=== PATIENT | female | born 1985 | race Caucasian/White ===

== ENCOUNTER → 2018-11-26 | Outpatient (CLI) | payer BC ==
[~2018-11-26] MED LIST: CONRAY-43 43% 50ML VIAL (Q9960) As Ordered ONE; PROHANCE 279.3MG/ML 5ML VIAL (A9576) As Ordered ONE
--- NOTE | 2018-11-26 11:03 | REP ---
MR ARTHROGRAM LEFT WRIST: TECHNIQUE: Multiple sequences obtained in the axial, coronal and sagittal planes prior to and following arthrogram procedure. There is focal marrow edema in the distal radius consistent with a nondisplaced fracture. There is mild fluid in the distal radial ulnar joint. On the arthrogram images injected fluid in the radiocarpal joint communicates with the distal radial ulnar joint consistent with a partial full thickness tear of the triangular fibrocartilage complex. The tear appears to be near the ulnar styloid insertion. The scapholunate and lunatotriquetral ligaments are intact. Flexor and extensor tendons are intact without significant tenosynovitis. Carpal tunnel region is unremarkable. There is no evidence of a ganglion cyst. No other soft tissue abnormality is seen. No other bone marrow signal abnormality is seen. IMPRESSION: Nondisplaced fracture distal radius. Full thickness partial tear of the triangular fibrocartilage complex near the ulnar styloid insertion. Mild fluid in the distal radial ulnar joint. Electronically Signed by Terrence Roman MD 11/26/2018 12:45 P
--- NOTE | 2018-11-26 17:22 | REP ---
LEFT WRIST ARTHROGRAM The procedure was performed under the direct supervision of Dr. Roman. The images were reviewed with Dr. Roman. The benefits and risks including but not limited to pain infection bleeding and anaphylaxis were explained to the patient and informed consent was obtained. The left radial scaphoid joint space was localized using fluoroscopic guidance. The skin was prepped and draped in a sterile fashion. 1% lidocaine was used as a local anesthetic. Using fluoroscopic guidance a 25-gauge needle was inserted and advanced into the joint. 3 ml of a solution containing 5 ml of Conray 43 and 5 ml of a solution containing 20 ml of sterile saline and 0.15 ml of ProHance was injected into the joint. Images obtained during injection show filling of the radial carpal row. The scapholunate and lunatotriquetral ligaments appear intact. There is contrast seen extending into the distal radial ulnar joint representing a triangular fibrocartilage complex tear. The needle was removed and the patient was taken to MRI for postprocedural imaging. The patient tolerated the procedure well and there were no immediate complications. 0.2 minutes of fluoroscopy time was utilized for this procedure. Reviewed by YONG Chaudhary 11/26/2018 04:24 P Electronically Signed by Terrence Roman MD 11/26/2018 05:13 P
== END ==
LOC: M RADPRO 06:30
PROVIDERS: ATTEND Nurse Practitioner Adult Health
DX: S52.592A Other fractures of lower end of left radius, initial encounter for closed fracture (principal)
CPT/HCPCS: 25246; 73223; 77002; A9576; Q9960

== ENCOUNTER → 2023-06-26 | Outpatient (CLI) | payer OTHER | LOC: M LAB 16:57 | PROVIDERS: ATTEND Physician Assistant | DX: R10.9 Unspecified abdominal pain (principal) ==

== ENCOUNTER → 2023-07-14 | Outpatient (CLI) | payer OTHER ==
[2023-07-14 18:40] LABS: BASO # 0.1 10^3/uL (0.0-0.2); BASO % 0.8 % (0.0-1.0); EOS # 0.3 10^3/uL (0.0-0.5); EOS % 3.8 % (0.0-3.0); HEMATOCRIT 43.5 % (36.0-47.0); HEMOGLOBIN 15.5 g/dl (12.0-15.5); LYMPH # 3.4 10^3/uL (1.5-5.0); LYMPH % 40.8 % (24.0-44.0); MEAN CORPUSCULAR HEMOGLOBIN 30.9 pg (27.0-33.0); MEAN CORPUSCULAR HGB CONC 35.6 g/dl (32.0-36.5); MEAN CORPUSCULAR VOLUME 86.7 fl (80.0-96.0); MONO # 0.8 10^3/uL (0.0-0.8); MONO % 9.3 % (2.0-8.0); NEUTROPHILS # 3.7 10^3/uL (1.5-8.5); NEUTROPHILS % 44.8 % (36.0-66.0); PLATELET COUNT, AUTOMATED 384 10^3/uL (150-450); RED BLOOD COUNT 5.02 10^6/uL (4.00-5.40); WHITE BLOOD COUNT 8.4 10^3/uL (4.0-10.0)
[2023-07-14 19:03] LABS: ALKALINE PHOSPHATASE 49 U/L (46-116); ALT/SGPT 13 U/L (7.0-40); AST/SGOT < 8 U/L (<34); BILIRUBIN,TOTAL 0.7 MG/DL (0.3-1.2); BLOOD UREA NITROGEN 15 MG/DL (9-23); CALCIUM LEVEL 8.8 MG/DL (8.5-10.1); CARBON DIOXIDE LEVEL 25 MMOL/L (20-31); CHLORIDE LEVEL 108 MMOL/L (98-107); CREATININE FOR GFR 0.67 MG/DL (0.55-1.30); GLOMERULAR FILTRATION RATE > 60.0 (>60); GLUCOSE, FASTING 86 MG/DL (60-100); POTASSIUM SERUM 4.1 MMOL/L (3.5-5.1); SODIUM LEVEL 138 MMOL/L (136-145); TOTAL PROTEIN 6.9 G/DL (5.7-8.2)
== END ==
LOC: M LAB 17:48
PROVIDERS: ATTEND Nurse Practitioner Family
DX: R19.7 Diarrhea, unspecified (principal)

== ENCOUNTER → 2023-12-09 | Outpatient (CLI) | payer OTHER ==
[~2023-12-09] MED LIST changes: -CONRAY-43 43% 50ML VIAL (Q9960) As Ordered ONE; +E-Z-GAS II EFFERVESCENT PACKET (SODIUM BICARB./CITRIC ACID/SIMETHICONE) As Ordered ONE; +E-Z-HD 98% w/w 340GM SUSP BTL As Ordered ONE; +E-Z-PAQUE 96% w/w SUSP 176GM BTL As Ordered ONE; -PROHANCE 279.3MG/ML 5ML VIAL (A9576) As Ordered ONE
== END ==
LOC: M RAD 07:56
PROVIDERS: ATTEND Physician Assistant Medical
DX: R19.7 Diarrhea, unspecified (principal)